=== PATIENT | female | born 1990 | race Caucasian/White ===

== ENCOUNTER 2016-09-21 11:42 | Emergency (ER) | payer MEDICAID, OTHER ==
[~2016-09-21 11:42] MED LIST: CALNTAB
[2016-09-21] MEDS ORDERED: LACTATED RINGER'S 1000 ML INJ 1,000 ML IV SCH (12:26)
[2016-09-21 12:30] VITALS: BP 136/85; PULSE 126; RESP 20; TEMP 98.6
[2016-09-21] MEDS ORDERED: METOCLOPRAMIDE HCL 10 MG/2 ML VIAL IV PUSH ONE (12:30)
[2016-09-21] MEDS ORDERED: ONDANSETRON HCL 4 MG/2 ML VIAL IV PUSH ONE (12:30)
[2016-09-21 12:59] LABS: HEMATOCRIT 35.9 % (35.0-46.0); MEAN CELL VOLUME 86.1 FL (80.0-100.0); MEAN CORPUSCULAR HEMOGLOBIN 30.6 PG (27.0-34.0); MEAN CORPUSCULAR HGB CONC 35.5 % (32.0-36.0); PLATELET COUNT 220 TH/MM3 (150-450); RED BLOOD COUNT 4.17 MIL/MM3 (4.00-5.30); RED CELL DISTRIBUTION WIDTH 13.5 % (11.6-17.2); REVIEW FLAG FINAL; WHITE BLOOD COUNT 19.3 TH/MM3 (4.0-11.0)
[2016-09-21 13:13] LABS: BACTERIA, URINE OCC /hpf; BLOOD, URINE TRACE (NEG); COMMENT (UR) CULT NOT INDICATED; CULTURE IF INDICATED CULT NOT INDICATED; GLUCOSE,URINE NEG (NEG); KETONE, URINE 80 mg/dL (NEG); MUCUS URINE FEW /lpf (OCC); NITRITE,URINE NEG (NEG); PH, URINE 6.5 (5.0-8.5); SQUAMOUS EPITHELIAL CELL URINE 21 /hpf (0-5); URINE COLOR YELLOW (YELLW/STRAW)
[2016-09-21 13:18] LABS: ALT (GPT) 24 U/L (10-53); ANION GAP 14 MEQ/L (5-15); AST (GOT) 34 U/L (15-37); BICARBONATE 20.4 MEQ/L (21.0-32.0); BLOOD UREA NITROGEN 9 MG/DL (7-18); CHLORIDE 106 MEQ/L (98-107); GLOMERULAR FILTRATION RATE 103 ML/MIN (>89); POTASSIUM 3.3 MEQ/L (3.5-5.1); SODIUM (NA) 140 MEQ/L (136-145)
[2016-09-21 13:20] LABS: AMPHETAMINE, URINE NEG (NEG); BARBITURATES, URINE NEG (NEG); COCAINE, URINE NEG (NEG)
[2016-09-21 13:21] LABS: ALKALINE PHOSPHATASE 165 U/L (45-117); TOTAL BILIRUBIN ADULT 0.4 MG/DL (0.2-1.0)
[2016-09-21] MEDS ORDERED: PROM25TA5 PO (14:05)
--- NOTE | 2016-09-21 14:06 | PD ---
HPI Chief Complaint Nausea and vomiting Date Seen: Sep 21, 2016 Travel History International Travel<30 Days: No Contact w/Intl Traveler<30Days: No Known Affected Area: No History of Present Illness HPI Patient is 26-year-old white female at 38 weeks presents planning of nausea and vomiting the last 1-2 days. With one episode of diarrhea as well. She denies any obstetrical problems baby is active she has no pain no bleeding or rupture the membranes Ammann heart rate tracing is reactive and she is anjum every 3 minutes but she doesn't feel them in all Para: 1 : 2 History Obstetric History Obstetric History One vaginal delivery Social History Alcohol Use: No Tobacco Use: No Substance Abuse: No Allergies-Medications (Allergen,Severity, Reaction): Coded Allergies: Latex (Verified Allergy, Severe, 09/20/16) Home Meds Reported Medications Vitamin (Calna)1 Tab Tab 08/04/16 Review of Systems General / Constitutional: No: Fever, Weight Gain, Chills, Other Eyes: No: Diploplia, Blurred Vision, Visual changes, Pain, Photophobia HENT: No: Headaches, Vertigo, Lightheadedness Cardiovascular: No: Irregular Rhythm, Chest Pain or Discomfort, Palpitations, Tachycardia, Syncope, Varicosities, Edema, Cyanosis Respiratory: Short of Breath, No: Cough, Wheezing, Other Gastrointestinal: Nausea, Vomiting, No: Diarrhea Genitourinary: No: Decreased Urinary Output, Oliguria Musculoskeletal: No: Limited ROM, Weakness, Cramping, Edema, Pain Skin: No Rash, No Itching, No Dryness, No Lumps, No Change in Pigmentation, No Change in Nails, No Alopecia, No Lesions Neurologic: No: Weakness, Dizziness, Syncope, Focal Abnormalities, Coordination Problem, Headache, Slurred Speech, Seizures Psychiatric: No: Depression, Suicidal Ideations, Homicidal Ideation Endocrine: No: Heat Intolerance, Cold Intolerance, Polydipsia, Polyuria, Other Physical Exam Vital Signs Date Time Temp Pulse Resp B/P Pulse Ox O2 Delivery O2 Flow Rate FiO2 09/21/16 12:30 98.6 20 09/21/16 12:30 126 136/85 Narrative GENERAL: Well-nourished, well-developed patient. SKIN: Warm and dry. HEAD: Normocephalic and atraumatic. EYES: No scleral icterus. No injection or drainage. ENT: No nasal drainage noted. Mucous membranes pink. Airway patent. NECK: Supple, trachea midline. No JVD. CARDIOVASCULAR: Regular rate and rhythm without murmurs, gallops, or rubs. RESPIRATORY: Breath sounds equal bilaterally. No accessory muscle use. BREASTS: Bilateral exam showed no masses , no retractions, no nipple discharge. ABDOMEN/GI: Abdomen soft, non-tender, bowel sounds present, no rebound, no guarding Gravid to [-38] weeks size Fundal Height: [-38] GENITOURINARY: External Genitalia: intact and normal in appearance BUS glands: [-] Cervix: [-] Dilatation: [2-] Effacement: [70-] Station: [-3] posterior Presentation: [-vtx] Membranes: [intact ] Uterine Contractions: [q 3 min-] FHT's: Category: [1-] Baseline: [-144] Reactive: [yes-] Variability: [mod-] Decels: [-none] EXTREMITIES: No cyanosis or edema. BACK: Nontender without obvious deformity. No CVA tenderness. NEUROLOGICAL: Awake and alert. Motor and sensory grossly within normal limits. Five out of 5 muscle strength in all muscle groups. Normal speech. Data Data Orders Vital Signs (Adult) .ON ADMISSION (09/21/16 12:26) ^ Labor Status (09/21/16 12:26) Urinalysis - C+S If Indicated (09/21/16 12:26) Cbc No Diff, Includes Plts (09/21/16 12:26) Comprehensive Metabolic Panel (09/21/16 12:26) Lactated Ringer's 1000 Ml Inj (Lr 1000 M (09/21/16 12:26) Ob/Psych Drug Screen, Urine (09/21/16 12:26) Ondansetron Inj (Zofran Inj) (09/21/16 12:30) Metoclopramide Inj (Reglan Inj) (09/21/16 12:30) Ur Bath Salts (09/21/16 12:43) Ur Heroin (09/21/16 12:43) Ur K2 Spice (09/21/16 12:43) Ur Ecstasy (09/21/16 12:43) Ur Methadone (09/21/16 12:43) Phencyclidine Urine (Pcp) (09/21/16 12:43) Labs Laboratory Tests Test 09/21/16 12:43 White Blood Count 19.3 Red Blood Count 4.17 Hemoglobin 12.7 Hematocrit 35.9 Mean Corpuscular Volume 86.1 Mean Corpuscular Hemoglobin 30.6 Mean Corpuscular Hemoglobin 35.5 Concent Red Cell Distribution Width 13.5 Platelet Count 220 Mean Platelet Volume 9.5 Urine Color YELLOW Urine Turbidity HAZY Urine pH 6.5 Urine Specific [place] 1.024 Urine Protein 100 Urine Glucose (UA) NEG Urine Ketones 80 Urine Occult Blood TRACE Urine Nitrite NEG Urine Bilirubin NEG Urine Urobilinogen LESS THAN 2.0 Urine Leukocyte Esterase SMALL Urine RBC 3 Urine WBC 4 Urine Squamous Epithelial 21 Cells Urine Bacteria OCC Urine Mucus FEW Microscopic Urinalysis Comment CULT NOT INDICATED Sodium Level 140 Potassium Level 3.3 Chloride Level 106 Carbon Dioxide Level 20.4 Anion Gap 14 Blood Urea Nitrogen 9 Creatinine 0.69 Estimat Glomerular Filtration 103 Rate Random Glucose 104 Calcium Level 8.8 Total Bilirubin 0.4 Aspartate Amino Transf 34 (AST/SGOT) Alanine Aminotransferase 24 (ALT/SGPT) Alkaline Phosphatase 165 Total Protein 7.7 Albumin 3.2 Urine Opiates Screen NEG Urine Barbiturates Screen NEG Urine Amphetamines Screen NEG Urine Benzodiazepines Screen NEG Urine Cocaine Screen NEG Urine Cannabinoids Screen NEG MDM Interpretation(s) She does 26-year-old white female at 38 weeks presents with nausea and vomiting. [facility], she denies obstetric problem no pain leakage or bleeding. The baby is active heart rate tracing is reactive she is anjum every 2-3 minutes but not feeling them cervix is 270 and -3 very posterior and she was checked over a period of 1-2 hours after the initial exam and her cervix remained the same. Plan This patient received a liter of IV fluid and antiemetic some form of Zofran and Reglan IV. Also discharged home with a prescription for oral Phenergan to take when necessary. She was labs within normal limits normal urinalysis normal blood work. She will follow-up with her OB provider Diagnosis Diagnosis: Primary Impression: Nausea and vomiting of , antepartum Additional Impression: False labor after 37 weeks of gestation without delivery Disposition: 01 DISCHARGE HOME Condition: Stable Scripts Promethazine (Phenergan)25 Mg Tab25 Mg PO Q6H PRN (Nausea/Vomiting) #28 TAB Ref 0 Prov:Delbert Cabrera II, MD 09/21/16 Delbert Cabrera II, MD Sep 21, 2016 14:05
[2016-09-25 09:43] LABS: HEROIN (6-ACETYLMORPHINE) UR NEG (NEG); OBMETHADONE UR NEG (NEG); PHENCYCLIDINE URINE NEG (NEG)
[2016-09-25 09:44] LABS: BATH SALTS (MDPV) UR NEG (NEG); ECSTASY (MDMA) UR NEG (NEG); K2 SPICE UR NEG (NEG); OXYCODONE (PERCODAN) NEG (NEG)
== END 2016-09-21 14:47 | disposition home or self-care (01) ==
LOC: HOBED 11:42
DX: O21.9 Vomiting of pregnancy, unspecified (principal); O47.1 False labor at or after 37 completed weeks of gestation; Z3A.38 38 weeks gestation of pregnancy
CPT/HCPCS: 59025; 80053; 80307; 81001; 85027; 96361; 96374; 96375; 99284; G0481; J2405; J2765; J7120

== ENCOUNTER 2016-09-29 22:25 | Emergency (ER) | payer MEDICAID ==
[~2016-09-29 22:25] MED LIST changes: +PROM25TA5 PO
[2016-09-29 23:38] LABS: BACTERIA, URINE RARE /hpf; BLOOD, URINE NEG (NEG); COMMENT (UR) CULT NOT INDICATED; CULTURE IF INDICATED CULT NOT INDICATED; GLUCOSE,URINE NEG (NEG); KETONE, URINE NEG (NEG); MUCUS URINE FEW /lpf (OCC); NITRITE,URINE NEG (NEG); SQUAMOUS EPITHELIAL CELL URINE 5 /hpf (0-5); URINE COLOR LIGHT-YELLOW (YELLW/STRAW)
--- NOTE | 2016-09-30 00:10 | PD ---
HPI Chief Complaint Contractions Date Seen: Sep 29, 2016 Time Seen: 23:10 Travel History International Travel<30 Days: No Contact w/Intl Traveler<30Days: No Known Affected Area: No History of Present Illness HPI 26-year-old 2 para 1 at 39-2/7 weeks' gestation with an EDC of 10/04. She reports with contractions since about 6 PM. She denies bleeding or leakage of fluid. She reports her cervix was 2 cm dilated at her last evaluation in labor and delivery for rule out labor. Para: 1 : 2 History Past Medical History Medical History: Denies Significant Hx Obstetric History Obstetric History Prior term vaginal [facility] care with [facility] which has been unremarkable. Past Surgical History Narrative Surgical Appendectomy, cholecystectomy Family History Family History: Negative Social History Alcohol Use: No Tobacco Use: No Substance Abuse: No Allergies-Medications (Allergen,Severity, Reaction): Coded Allergies: Latex (Verified Allergy, Severe, 09/27/16) Home Meds Active Scripts Promethazine (Phenergan)25 Mg Tab25 Mg PO Q6H PRN (Nausea/Vomiting) #28 TAB Ref 0 Prov:Delbert Cabrera II, MD 09/21/16 Reported Medications Vitamin (Calna)1 Tab Tab 08/04/16 Review of Systems Except as stated in HPI: all other systems reviewed are Neg Physical Exam Narrative GENERAL: Well-nourished, well-developed patient. SKIN: Warm and dry. HEAD: Normocephalic and atraumatic. EYES: No scleral icterus. No injection or drainage. ENT: No nasal drainage noted. Mucous membranes pink. Airway patent. NECK: Supple, trachea midline. No JVD. CARDIOVASCULAR: Regular rate and rhythm without murmurs, gallops, or rubs. RESPIRATORY: Breath sounds equal bilaterally. No accessory muscle use. ABDOMEN/GI: Abdomen soft, non-tender, bowel sounds present, no rebound, no guarding Gravid to [-] weeks size Fundal Height: [-] GENITOURINARY: External Genitalia: intact and normal in appearance BUS glands: [-] Cervix: [-] Dilatation: [-2] Effacement: [-50] Station: [--3] Presentation: [-Vertex] Membranes: [intact ] Uterine Contractions: [-Irregular] FHT's: Category: [1-] Baseline: [-] Reactive: [Reactive-] Variability: [-] Decels: [-] EXTREMITIES: No cyanosis or edema. BACK: Nontender without obvious deformity. No CVA tenderness. NEUROLOGICAL: Awake and alert. Motor and sensory grossly within normal limits. Five out of 5 muscle strength in all muscle groups. Normal speech. Data Data Vital Signs Reviewed: Yes Orders Urinalysis - C+S If Indicated (09/29/16 23:00) Labs Laboratory Tests Test 09/29/16 23:00 Urine Color LIGHT-YELLOW Urine Turbidity CLEAR Urine pH 7.0 Urine Specific [place] 1.007 Urine Protein NEG Urine Glucose (UA) NEG Urine Ketones NEG Urine Occult Blood NEG Urine Nitrite NEG Urine Bilirubin NEG Urine Urobilinogen LESS THAN 2.0 Urine Leukocyte Esterase NEG Urine RBC 1 Urine WBC 1 Urine Squamous Epithelial 5 Cells Urine Bacteria RARE Urine Mucus FEW Microscopic Urinalysis Comment CULT NOT INDICATED MDM Medical Record Reviewed: Yes Narrative Course / MDM Assessment: 39+ week gestation with irregular contractions without cervical change. Mild systolic blood pressure elevation without other features of preeclampsia Plan: The patient desires to go home and then to continue to be observed here for progressive signs of labor. Precautions were reviewed. 100 mg of by mouth Vistaril. Diagnosis Diagnosis: Primary Impression: False labor after 37 weeks of gestation without delivery Disposition: DISCHARGE HOME Braulio Friedman MD Sep 30, 2016 00:10
== END 2016-09-30 00:40 | disposition home or self-care (01) ==
LOC: HOBED 22:25
DX: O47.1 False labor at or after 37 completed weeks of gestation (principal); Z3A.39 39 weeks gestation of pregnancy
CPT/HCPCS: 81001; 99284

== ENCOUNTER 2016-10-02 07:49 | Inpatient (IN) | payer MEDICAID ==
[~2016-10-02] VITALS: Ht 152.4 cm; Wt 77.0 kg
[2016-10-02] VITALS (55 sets, daily range): BP systolic 100–155; BP diastolic 54–92; PULSE 62–113; RESP 17–22; TEMP 97.7–98.6
[2016-10-02] MEDS ORDERED: LACTATED RINGER'S 1000 ML INJ 1,000 ML IV PRN (08:29)
[2016-10-02] MEDS ORDERED: OXYTOCIN 30 UNITS-500ML PREMIX 500 ML IV ONE (08:30)
[2016-10-02] MEDS ORDERED: LIDOCAINE HCL 1% 50 ML VIAL INFIL PRN (08:30)
[2016-10-02] MEDS ORDERED: MINERAL OIL 10 ML VIAL TOPICAL PRN (08:30)
[2016-10-02] MEDS ORDERED: ONDANSETRON HCL 4 MG/2 ML VIAL IV PRN (08:30)
[2016-10-02] MEDS ORDERED: SODIUM CHLORID 0.9% 500 ML INJ 500 ML IV PRN (08:30)
[2016-10-02] MEDS ORDERED: CITRIC ACID-SODIUM CITRATE LIQ 30 ML UDC PO SCH (08:30)
[2016-10-02] MEDS ORDERED: LIDOCAINE HCL 1% 50 ML VIAL I-DERMAL PRN (08:30)
--- NOTE | 2016-10-02 08:48 | PD ---
HPI Chief Complaint Contractions Date Seen: Oct 02, 2016 Time Seen: 08:30 (Eagle Moreno MD R2) Travel History International Travel<30 Days: No Contact w/Intl Traveler<30Days: No Known Affected Area: No (Eagle Moreno MD R2) History of Present Illness HPI This is a 26-year-old female at 39/5 weeks gestational age presenting to [facility] ED for contractions that have been occurring since midnight. She says that the contractions started out soft but fairly consistent during the night, and have progressively increased in strength and frequency. Throughout this time frame she has been noticing some bloody discharge with her normal vaginal discharge. She denies any gush of fluid or continued leakage of fluid. She denies any headache, blurred vision, or continued right upper quadrant abdominal pain. She does admit to her face feeling swollen. She reports that throughout the she has not had blood pressure issues until the last week and her appointment they noticed her blood pressure elevating some. Upon arriving to the ED her blood pressure was elevated at 153/87, then repeats were 141/95 then 134/89. She is having a baby girl and she is looking forward to seeing little one. Of note she is GBS negative Para: 1 : 2 (Eagle Moreno MD R2) History Past Medical History Medical History: Denies Significant Hx (Eagle Moreno MD R2) Obstetric History Obstetric History One previous vaginal delivery (Eagle Moreno MD R2) Past Surgical History Narrative Surgical Appendectomy, cholecystectomy (Eagle Moreno MD R2) Family History Family History: Negative (Eagle Moreno MD R2) Social History Alcohol Use: No Tobacco Use: Yes (smoked prior to , quit when she found out she was ) Substance Abuse: No (Eagle Moreno MD R2) Allergies-Medications (Allergen,Severity, Reaction): Coded Allergies: Latex (Verified Allergy, Severe, 09/27/16) Home Meds Active Scripts Promethazine (Phenergan)25 Mg Tab25 Mg PO Q6H PRN (Nausea/Vomiting) #28 TAB Ref 0 Prov:Delbert Cabrera II, MD 09/21/16 Reported Medications Vitamin (Calna)1 Tab Tab 08/04/16 Review of Systems General / Constitutional: Weight Gain, No: Fever, Weight Loss, Chills Eyes: No: Diploplia, Blurred Vision, Visual changes HENT: No: Headaches, Lightheadedness Cardiovascular: No: Irregular Rhythm, Chest Pain or Discomfort Respiratory: No: Cough, Short of Breath Gastrointestinal: Nausea, Abdominal Pain (contractions), No: Vomiting, Constipation, Changes in Bowel Habits, Indigestion, Loss of Appetite Genitourinary: Pelvic Pain, Discharge, Vaginal Bleeding, No: Urgency, Nocturia Musculoskeletal: Edema (face and legs), No: Weakness Skin: No Rash, No Itching Neurologic: No: Weakness, Dizziness, Headache, Slurred Speech, Seizures Psychiatric: No: Anxiety, Depression (Eagle Moreno MD R2) Physical Exam Narrative GENERAL: Well-nourished, well-developed patient. SKIN: Warm and dry. HEAD: Normocephalic and atraumatic. EYES: No scleral icterus. No injection or drainage. ENT: No nasal drainage noted. Mucous membranes pink. Airway patent. NECK: Supple, trachea midline. No JVD. CARDIOVASCULAR: Regular rate and rhythm without murmurs, gallops, or rubs. RESPIRATORY: Breath sounds equal bilaterally. No accessory muscle use. ABDOMEN/GI: Abdomen soft, non-tender, bowel sounds present, no rebound, no guarding Gravid to 39 weeks size Fundal Height: 39 GENITOURINARY: External Genitalia: intact and normal in appearance Cervix: Thin, soft, stretchy Dilatation: 4 Effacement: 80% Station: -3 Presentation: Vertex Membranes: Intact Uterine Contractions: Every 2-3 minutes FHT's: Category: 1 Baseline: 120 Reactive: Up to 140 Variability: Moderate Decels: None EXTREMITIES: No cyanosis or edema. BACK: Nontender without obvious deformity. No CVA tenderness. NEUROLOGICAL: Awake and alert. Motor and sensory grossly within normal limits. Five out of 5 muscle strength in all muscle groups. Normal speech. (Eagle Moreno MD R2) Data Data Vital Signs Reviewed: Yes Orders Admit To Inpatient (10/02/16 ) Code Status (10/02/16 08:29) Vital Signs (Adult) .Per protocol (10/02/16 08:29) Activity Oob Ad Sushila (10/02/16 08:29) ^ Heart (10/02/16 08:29) ^ Amnioinfusion (10/02/16 08:29) Urinary Catheter Management .ONCE (10/02/16 08:29) Diet Npo (10/02/16 Breakfast) Lactated Ringer's 1000 Ml Inj (Lr 1000 M (10/02/16 08:29) Lactated Ringer's 1000 Ml Inj (Lr 1000 M (10/02/16 08:29) Sodium Chlorid 0.9% 500 Ml Inj (Ns 500 M (10/02/16 08:30) Sodium Chlor 0.9% 1000 Ml Inj (Ns 1000 M (10/02/16 08:49) Lidocaine 1% Inj (50 Ml) (Xylocaine 1% I (10/02/16 08:30) Citric Acid-Sodium Citrate Liq (Bicitra (10/02/16 08:30) Ondansetron Inj (Zofran Inj) (10/02/16 08:30) Fentanyl Inj (Fentanyl Inj) (10/02/16 08:30) Fentanyl Inj (Fentanyl Inj) (10/02/16 08:30) Complete Blood Count With Diff (10/02/16 08:29) Hold Clot (10/02/16 08:29) Abo/Rh Blood Type (10/02/16 08:29) Urinalysis - C+S If Indicated (10/02/16 08:29) Resp Oxygen Non Rebreathe Mask (10/02/16 ) ^ Epidural / Intrathecal Infus (10/02/16 08:29) Oxytocin 30 Units-500ml Premix (Pitocin (10/02/16 08:30) Lidocaine 1% Inj (50 Ml) (Xylocaine 1% I (10/02/16 08:30) Light Mineral Oil (Muri-Lube Oil) (10/02/16 08:30) Inpatient Certification (10/02/16 ) (Eagle Moreno MD R2) MDM Medical Record Reviewed: Yes Interpretation(s) Contractions Narrative Course / MDM This is a 26-year-old female at 39/5 weeks gestational age being admitted for labor Plan 1. Intrauterine : GBS negative -Continuous heart tracing: Category 1 -Continuous monitoring for contractions: Every 2-3 minutes -Continue expectant management -Patient plans for epidural -Currently intact membrane anticipate AROM 2. Elevated blood pressure in (153/87 upon arrival, most recent 134/ 89) -CBC ordered: Results pending -CMP ordered: Results pending -UA ordered: Results pending -Continue evaluation for possible preeclampsia DW: Dr. Friedman (Eagle Moreno MD R2) Attending Attestation Patient seen and evaluated with resident under direct supervision, agree with assessment and plan. (Braulio Friedman MD) Eagle Moreno MD R2 Oct 02, 2016 08:48 Braulio Friedman MD Oct 02, 2016 09:32
[2016-10-02] MEDS ORDERED: SODIUM CHLOR 0.9% 1000 ML INJ 1,000 ML IV PRN (08:49)
--- NOTE | 2016-10-02 08:51 | HHI.HP ---
History & Physical H&P HPI Chief Complaint Contractions Date Seen: Oct 02, 2016 Time Seen: 08:30 Travel History International Travel<30 Days: No Contact w/Intl Traveler<30Days: No Known Affected Area: No History of Present Illness HPI This is a 26-year-old female at 39/5 weeks gestational age presenting to [facility] ED for contractions that have been occurring since midnight. She says that the contractions started out soft but fairly consistent during the night, and have progressively increased in strength and frequency. Throughout this time frame she has been noticing some bloody discharge with her normal vaginal discharge. She denies any gush of fluid or continued leakage of fluid. She denies any headache, blurred vision, or continued right upper quadrant abdominal pain. She does admit to her face feeling swollen. She reports that throughout the she has not had blood pressure issues until the last week and her appointment they noticed her blood pressure elevating some. Upon arriving to the ED her blood pressure was elevated at 153/87, then repeats were 141/95 then 134/89. She is having a baby girl and she is looking forward to seeing little one. Of note she is GBS negative Para: 1 : 2 History (Limited) History Past Medical History Medical History: Denies Significant Hx Obstetric History Obstetric History One previous vaginal delivery Past Surgical History Narrative Surgical Appendectomy, cholecystectomy Family History Family History: Negative Social History Alcohol Use: No Tobacco Use: Yes (smoked prior to , quit when she found out she was ) Substance Abuse: No Allergies-Medications Allergies-Medications (Allergen,Severity, Reaction): Coded Allergies: Latex (Verified Allergy, Severe, 09/27/16) Home Meds Active Scripts Promethazine (Phenergan)25 Mg Tab25 Mg PO Q6H PRN (Nausea/Vomiting) #28 TAB Ref 0 Prov:Delbert Cabrera II, MD 09/21/16 Reported Medications Vitamin (Calna)1 Tab Tab 08/04/16 ROS Review of Systems General / Constitutional: Weight Gain, No: Fever, Weight Loss, Chills Eyes: No: Diploplia, Blurred Vision, Visual changes HENT: No: Headaches, Lightheadedness Cardiovascular: No: Irregular Rhythm, Chest Pain or Discomfort Respiratory: No: Cough, Short of Breath Gastrointestinal: Nausea, Abdominal Pain (contractions), No: Vomiting, Constipation, Changes in Bowel Habits, Indigestion, Loss of Appetite Genitourinary: Pelvic Pain, Discharge, Vaginal Bleeding, No: Urgency, Nocturia Musculoskeletal: Edema (face and legs), No: Weakness Skin: No Rash, No Itching Neurologic: No: Weakness, Dizziness, Headache, Slurred Speech, Seizures Psychiatric: No: Anxiety, Depression Physical Exam Physical Exam Narrative GENERAL: Well-nourished, well-developed patient. SKIN: Warm and dry. HEAD: Normocephalic and atraumatic. EYES: No scleral icterus. No injection or drainage. ENT: No nasal drainage noted. Mucous membranes pink. Airway patent. NECK: Supple, trachea midline. No JVD. CARDIOVASCULAR: Regular rate and rhythm without murmurs, gallops, or rubs. RESPIRATORY: Breath sounds equal bilaterally. No accessory muscle use. ABDOMEN/GI: Abdomen soft, non-tender, bowel sounds present, no rebound, no guarding Gravid to 39 weeks size Fundal Height: 39 GENITOURINARY: External Genitalia: intact and normal in appearance Cervix: Thin, soft, stretchy Dilatation: 4 Effacement: 80% Station: -3 Presentation: Vertex Membranes: Intact Uterine Contractions: Every 2-3 minutes FHT's: Category: 1 Baseline: 120 Reactive: Up to 140 Variability: Moderate Decels: None EXTREMITIES: No cyanosis or edema. BACK: Nontender without obvious deformity. No CVA tenderness. NEUROLOGICAL: Awake and alert. Motor and sensory grossly within normal limits. Five out of 5 muscle strength in all muscle groups. Normal speech. Data Data Data Vital Signs Reviewed: Yes Orders Admit To Inpatient (10/02/16 ) Code Status (10/02/16 08:29) Vital Signs (Adult) .Per protocol (10/02/16 08:29) Activity Oob Ad Sushila (10/02/16 08:29) ^ Heart (10/02/16 08:29) ^ Amnioinfusion (10/02/16 08:29) Urinary Catheter Management .ONCE (10/02/16 08:29) Diet Npo (10/02/16 Breakfast) Lactated Ringer's 1000 Ml Inj (Lr 1000 M (10/02/16 08:29) Lactated Ringer's 1000 Ml Inj (Lr 1000 M (10/02/16 08:29) Sodium Chlorid 0.9% 500 Ml Inj (Ns 500 M (10/02/16 08:30) Sodium Chlor 0.9% 1000 Ml Inj (Ns 1000 M (10/02/16 08:49) Lidocaine 1% Inj (50 Ml) (Xylocaine 1% I (10/02/16 08:30) Citric Acid-Sodium Citrate Liq (Bicitra (10/02/16 08:30) Ondansetron Inj (Zofran Inj) (10/02/16 08:30) Fentanyl Inj (Fentanyl Inj) (10/02/16 08:30) Fentanyl Inj (Fentanyl Inj) (10/02/16 08:30) Complete Blood Count With Diff (10/02/16 08:29) Hold Clot (10/02/16 08:29) Abo/Rh Blood Type (10/02/16 08:29) Urinalysis - C+S If Indicated (10/02/16 08:29) Resp Oxygen Non Rebreathe Mask (10/02/16 ) ^ Epidural / Intrathecal Infus (10/02/16 08:29) Oxytocin 30 Units-500ml Premix (Pitocin (10/02/16 08:30) Lidocaine 1% Inj (50 Ml) (Xylocaine 1% I (10/02/16 08:30) Light Mineral Oil (Muri-Lube Oil) (10/02/16 08:30) Inpatient Certification (10/02/16 ) MDM MDM Medical Record Reviewed: Yes Interpretation(s) Contractions Narrative Course / MDM This is a 26-year-old female at 39/5 weeks gestational age being admitted for labor Plan 1. Intrauterine : GBS negative -Continuous heart tracing: Category 1 -Continuous monitoring for contractions: Every 2-3 minutes -Continue expectant management -Patient plans for epidural -Currently intact membrane anticipate AROM 2. Elevated blood pressure in (153/87 upon arrival, most recent 134/ 89) -CBC ordered: Results pending -CMP ordered: Results pending -UA ordered: Results pending -Continue evaluation for possible preeclampsia DW: Dr. Friedman (Eagle Moreno MD R2) H&P Patient seen and evaluated with resident under direct supervision, agree with assessment and plan. (Braulio Friedman MD) Eagle Moreno MD R2 Oct 02, 2016 08:51 Braulio Friedman MD Oct 02, 2016 09:33
[2016-10-02 09:09] LABS: AUTOMATED NEUTROPHIL # 9.6 TH/MM3 (1.8-7.7); BASOPHIL % 0.2 % (0.0-2.0); EOSINOPHIL # 0.1 TH/MM3 (0-0.4); EOSINOPHIL % 0.5 % (0.0-4.0); HEMATOCRIT 34.6 % (35.0-46.0); HEMO FLAGS DIFF FINAL; LYMPHOCYTE # 2.9 TH/MM3 (1.0-4.8); MEAN CELL VOLUME 86.1 FL (80.0-100.0); MEAN CORPUSCULAR HEMOGLOBIN 29.9 PG (27.0-34.0); MEAN CORPUSCULAR HGB CONC 34.7 % (32.0-36.0); MONO % 5.3 % (0.0-8.0); PLATELET COUNT 238 TH/MM3 (150-450); RED BLOOD COUNT 4.02 MIL/MM3 (4.00-5.30); RED CELL DISTRIBUTION WIDTH 13.5 % (11.6-17.2); WHITE BLOOD COUNT 13.3 TH/MM3 (4.0-11.0)
[2016-10-02 09:14] LABS: BLOOD, URINE SMALL (NEG); GLUCOSE,URINE NEG (NEG); GRANULAR CAST, URINE 1 /lpf; KETONE, URINE NEG (NEG); NITRITE,URINE NEG (NEG); SQUAMOUS EPITHELIAL CELL URINE 2 /hpf (0-5); URINE COLOR LIGHT-YELLOW (YELLW/STRAW)
[2016-10-02 09:15] LABS: COMMENT (UR) CULT NOT INDICATED; CULTURE IF INDICATED CULT NOT INDICATED
[2016-10-02] MEDS ORDERED: fentaNYL 2MCG-BUPIV 0.125% INJ 100 ML ONE (09:22)
[2016-10-02] MEDS ORDERED: ePHEDrine/NS 25 MG/5 ML SYR ONE (09:45)
[2016-10-02] MEDS: LACTATED RINGER'S 1000 ML INJ 1,000 ML IV SCH ×2 (09:52→12:13)
[2016-10-02 09:56] LABS: ALKALINE PHOSPHATASE 174 U/L (45-117); ALT (GPT) 26 U/L (10-53); ANION GAP 11 MEQ/L (5-15); AST (GOT) 21 U/L (15-37); BICARBONATE 21.3 MEQ/L (21.0-32.0); BLOOD UREA NITROGEN 7 MG/DL (7-18); CHLORIDE 104 MEQ/L (98-107); GLOMERULAR FILTRATION RATE 101 ML/MIN (>89); POTASSIUM 3.7 MEQ/L (3.5-5.1); SODIUM (NA) 136 MEQ/L (136-145); TOTAL BILIRUBIN ADULT 0.3 MG/DL (0.2-1.0)
--- NOTE | 2016-10-02 11:02 | PD.LABORPN ---
Subjective Subjective Patient seen and examined. Doing well is not complaining of any pain. Continues to feel contractions. Feels baby moving appropriately. Continues to complain of pelvic pressure. Agrees to the plan of doing an artificial rupture membrane. Objective Vital Signs Vital Signs Date Time Temp Pulse Resp B/P Pulse Ox O2 Delivery O2 Flow Rate FiO2 10/02/16 10:15 97.7 10/02/16 10:11 71 20 135/76 10/02/16 10:06 68 134/80 10/02/16 10:05 73 10/02/16 10:00 76 10/02/16 09:29 20 Objective Pelvic Exam: Cervix: Thin, stretchy Dilatation: 4 Effacement: 80 Station: -3 Presentation: Vertex Membranes: AROM Uterine Contractions: 4-5 minutes FHT's: Category: 1 Baseline: 120 Reactive: Up to 150 Variability: Monitor Decels: Variables Assessment/Plan Problem List: (1) Intrauterine (2) Labor without complication Assessment and Plan This is a 26-year-old female at 39/5 weeks gestational age currently laboring 1. Intrauterine : GBS negative, AROM -Continuous heart tracing: Category 1 -Continuous monitoring for contractions: Every 2-3 minutes -Continue expectant management -AROM performed, clear fluid -Recheck in 1-2 hours for progression, consider Pitocin at that time 2. Elevated blood pressure in (153/87 upon arrival, most recent 110/ 82) -CBC: Platelets 238 -CMP: AST/ALT is 21/26 respectively -UA: Negative protein -Continue to monitor blood pressure, improving with pain control DW: Eagle Landaverde MD R2 Oct 02, 2016 11:02
[2016-10-02] MEDS ORDERED: DO NOT ADMINISTER ANTICOAGULANTS XX PRN (12:00)
[2016-10-02] MEDS ORDERED: fentaNYL 2MCG-BUPIV 0.125% 100 ML EPIDURAL SCH (12:00)
[2016-10-02] MEDS ORDERED: ePHEDrine/NS 25 MG/5 ML SYR IV PRN (12:00)
[2016-10-02] MEDS ORDERED: NO SYSTEM NARCOTICS XX PRN (12:00)
[2016-10-02] MEDS ORDERED: OXYTOCIN 30 UNITS-500ML PREMIX 500 ML IV SCH (14:45)
[2016-10-02] MEDS ORDERED: PREN29TA PO (14:49)
--- NOTE | 2016-10-02 15:16 | PD.LABORPN ---
Subjective Subjective Patient seen and examined. Doing well, pain is controlled. She continues to feel contractions. +FM. Objective Vital Signs Vital Signs Date Time Temp Pulse Resp B/P Pulse Ox O2 Delivery O2 Flow Rate FiO2 10/02/16 14:46 78 132/87 10/02/16 14:30 98.6 18 10/02/16 14:16 71 138/79 10/02/16 13:59 18 10/02/16 13:45 62 130/81 10/02/16 13:06 17 10/02/16 13:05 72 10/02/16 13:01 68 120/72 10/02/16 13:00 70 10/02/16 12:05 65 10/02/16 12:01 69 100/59 10/02/16 12:00 72 10/02/16 11:55 71 10/02/16 11:50 70 10/02/16 11:46 66 103/54 10/02/16 11:45 71 10/02/16 11:40 66 10/02/16 11:35 66 10/02/16 11:31 71 104/62 10/02/16 11:30 70 10/02/16 11:30 18 10/02/16 11:25 70 10/02/16 11:20 68 10/02/16 11:16 62 121/66 10/02/16 11:15 69 10/02/16 10:45 20 10/02/16 10:40 74 10/02/16 10:35 84 10/02/16 10:31 83 134/92 10/02/16 10:30 81 10/02/16 10:15 97.7 10/02/16 10:11 71 20 135/76 10/02/16 10:06 68 134/80 10/02/16 10:05 73 10/02/16 10:00 76 10/02/16 09:29 20 Objective Pelvic Exam: Cervix: anterior Dilatation: 5cm Effacement: 80% Station: -3 Presentation: vertex Membranes: ruptured Uterine Contractions: q2-3 minutes FHT's: Category: I Baseline: 120s Reactive: yes Variability: mod Decels: none Assessment/Plan Problem List: (1) Intrauterine (2) Labor without complication Assessment and Plan Patient is a 26 year old at 39/5 weeks gestation currently laboring 1. Intrauterine : GBS negative, AROM -Continuous heart tracing: Category 1 -Continuous monitoring for contractions: Every 2-3 minutes -Continue expectant management -AROM performed, clear fluid -Pitocin augmentation per protocol -Recheck in 1-2 hours for progression 2. Elevated blood pressure in (153/87 upon arrival, most recent 132/87 ) -CBC: Platelets 238 -CMP: AST/ALT is 21/26 respectively -UA: Negative protein -Continue to monitor blood pressure, improving with pain control dw Dr. Rick Cota,Anthony GRAY R1 Oct 02, 2016 15:16
[2016-10-02] MEDS ORDERED: DIPHTH/TETANUS/ACEL PERTUSSIS (BOOSTER) 0.5 ML VIAL/PFS IM ONE (16:00)
[2016-10-02] MEDS ORDERED: MEASLES, MUMPS, RUBELLA VACCINE 0.5 ML VIAL SQ ONE (16:00)
--- NOTE | 2016-10-02 16:41 | PD.LABORPN ---
Subjective Subjective Patient seen and examined. Reports that she is feeling some contractions and some pelvic pressure. Overall says she is doing fine other than she feels some mild nausea. Objective Vital Signs Vital Signs Date Time Temp Pulse Resp B/P Pulse Ox O2 Delivery O2 Flow Rate FiO2 10/02/16 16:01 88 143/81 10/02/16 16:00 19 10/02/16 15:46 79 140/79 10/02/16 15:30 18 10/02/16 15:16 80 127/84 10/02/16 14:46 78 132/87 10/02/16 14:30 98.6 18 10/02/16 14:16 71 138/79 10/02/16 13:59 18 10/02/16 13:45 62 130/81 10/02/16 13:06 17 10/02/16 13:05 72 10/02/16 13:01 68 120/72 10/02/16 13:00 70 10/02/16 12:05 65 10/02/16 12:01 69 100/59 10/02/16 12:00 72 10/02/16 11:55 71 10/02/16 11:50 70 10/02/16 11:46 66 103/54 10/02/16 11:45 71 10/02/16 11:40 66 10/02/16 11:35 66 10/02/16 11:31 71 104/62 10/02/16 11:30 70 10/02/16 11:30 18 10/02/16 11:25 70 10/02/16 11:20 68 10/02/16 11:16 62 121/66 10/02/16 11:15 69 10/02/16 10:45 20 10/02/16 10:40 74 10/02/16 10:35 84 10/02/16 10:31 83 134/92 10/02/16 10:30 81 10/02/16 10:15 97.7 10/02/16 10:11 71 20 135/76 10/02/16 10:06 68 134/80 10/02/16 10:05 73 10/02/16 10:00 76 10/02/16 09:29 20 Objective Pelvic Exam: Cervix: Soft Dilatation: 6 Effacement: 80% Station: -3 Presentation: Vertex Membranes: AROM Uterine Contractions: 23 minutes FHT's: Category: 2 Baseline: 120 Reactive: Up to 145 Variability: Moderate Decels: Variables Assessment/Plan Problem List: (1) Intrauterine (2) Labor without complication Assessment and Plan This is a 26-year-old female at 39/5 weeks gestational age currently laboring 1. Intrauterine : GBS negative, AROM -Continuous heart tracing: Category 2 -Continuous monitoring for contractions: Every 2-3 minutes -Continue expectant management -AROM performed, clear fluid -Recheck in 1-2 hours for progression -Pitocin at 2-2-20 2. Elevated blood pressure in (153/87 upon arrival, most recent 110/ 82) -CBC: Platelets 238 -CMP: AST/ALT is 21/26 respectively -UA: Negative protein -Continue to monitor blood pressure, improved with pain control DW: Dr. Rick Moreno,Eagle Dumont MD R2 Oct 02, 2016 16:41
[2016-10-02] MEDS ORDERED: LIDOCAINE HCL 1.5% PF SOLN 20 ML AMP ONE (16:47)
--- NOTE | 2016-10-02 18:14 | PD.OB.DELI ---
Anesthesia: Epidural Episiotomy: None Vaginal Delivery: Normal, Spontaneous Presentation: Occiput anterior Nuchal Cord: None Delayed cord clamping (45 sec): No Infant: Female One Minute : 9 Five Minute : 9 Weight: 3375 grams Care: Spontaneous crying, Responded to stimulation Placenta: Spontaneous delivery, Intact, 3 vessel cord Laceration: No lacerations Additional Information 26 year old now delivered at 39/5 weeks gestation vaginally over an intact perineum. Apgars were 9/9. weight 3375 grams. Placenta delivered spontaneously intact with 3-vessel cord. EBL < 500 cc. No vaginal lacerations. Anthony Cota MD R1 Oct 02, 2016 18:14
[2016-10-02] MEDS ORDERED: DOCUSATE SODIUM 50 MG/SENNA 8.6 MG TAB PO PRN (18:15)
[2016-10-02] MEDS ORDERED: ALUMINUM/MAGNESIUM/SIMETH 30 ML CUP PO PRN (18:15)
[2016-10-02] MEDS ORDERED: WITCH HAZEL 50%/GLYCERIN 12.5% 40 PAD JAR TOPICAL PRN (18:15)
[2016-10-02] MEDS ORDERED: oxyCODONE/ACETAMINOPHEN 5 MG/325 MG TAB PO PRN (18:15)
[2016-10-02] MEDS ORDERED: ZOLPIDEM TARTRATE 5 MG TAB PO PRN (18:15)
[2016-10-02] MEDS ORDERED: ACETAMINOPHEN 325 MG TAB PO PRN (18:15)
[2016-10-02] MEDS ORDERED: ONDANSETRON ODT 4 MG TAB PO PRN (18:15)
[2016-10-02] MEDS ORDERED: BENZOCAINE 20% TOPICAL SPRAY 60 ML CAN TOPICAL PRN (18:15)
[2016-10-02] MEDS ORDERED: SODIUM CHLORIDE 0.9% FLUSH 5 ML FLUSH IV PRN (18:15)
[2016-10-02] MEDS ORDERED: SODIUM CHLORIDE 0.9% FLUSH 5 ML FLUSH IV SCH (21:00)
[2016-10-02] MEDS: IBUPROFEN 600 MG TAB PO PRN (22:12)
[2016-10-03] MEDS: IBUPROFEN 600 MG TAB PO PRN ×3 (06:02→23:34)
--- NOTE | 2016-10-03 07:29 | HHI.OB ---
Subjective Post Day: 2 Remarks Patient seen and examined this morning. AFVSS overnight. day #1. She is using Motrin for relief of pain and cramping. She states she is having vaginal bleeding at an amount slightly more than her normal period. Denies dysuria. No breast tenderness. She is feeding the baby via breast. No nausea or vomiting, she plans to order breakfast soon. Ambulating slowly but without major issues. Denies calf pain, shortness of breath, or cough. She otherwise has no other complaints or concerns this morning. Objective Vitals/I&O Vital Signs Date Time Temp Pulse Resp B/P Pulse Ox O2 Delivery O2 Flow Rate FiO2 10/02/16 19:30 73 121/68 10/02/16 19:15 77 117/68 10/02/16 19:00 78 120/67 10/02/16 18:45 18 10/02/16 18:45 82 122/66 10/02/16 18:43 76 117/65 10/02/16 18:30 98.6 10/02/16 18:21 18 10/02/16 18:15 72 130/67 10/02/16 17:45 22 10/02/16 17:31 83 155/68 10/02/16 17:16 20 10/02/16 16:53 20 10/02/16 16:47 83 145/81 10/02/16 16:30 18 10/02/16 16:15 113 144/91 10/02/16 16:01 88 143/81 10/02/16 16:00 19 10/02/16 15:46 79 140/79 10/02/16 15:30 18 10/02/16 15:16 80 127/84 10/02/16 14:46 78 132/87 10/02/16 14:30 98.6 18 10/02/16 14:16 71 138/79 10/02/16 13:59 18 10/02/16 13:45 62 130/81 10/02/16 13:06 17 10/02/16 13:05 72 10/02/16 13:01 68 120/72 10/02/16 13:00 70 10/02/16 12:05 65 10/02/16 12:01 69 100/59 10/02/16 12:00 72 10/02/16 11:55 71 10/02/16 11:50 70 10/02/16 11:46 66 103/54 10/02/16 11:45 71 10/02/16 11:40 66 10/02/16 11:35 66 10/02/16 11:31 71 104/62 10/02/16 11:30 70 10/02/16 11:30 18 10/02/16 11:25 70 10/02/16 11:20 68 10/02/16 11:16 62 121/66 10/02/16 11:15 69 10/02/16 10:45 20 10/02/16 10:40 74 10/02/16 10:35 84 10/02/16 10:31 83 134/92 10/02/16 10:30 81 10/02/16 10:15 97.7 10/02/16 10:11 71 20 135/76 10/02/16 10:06 68 134/80 10/02/16 10:05 73 10/02/16 10:00 76 10/02/16 09:29 20 Objective Remarks GENERAL: Well-nourished, well-developed patient. CARDIOVASCULAR: Regular rate and rhythm without murmurs, gallops, or rubs. RESPIRATORY: Breath sounds equal bilaterally. No accessory muscle use. ABDOMEN/GI: Abdomen soft, non-tender. Fundus: Firm, non-tender at umbilicus. GENITOURINARY: Moderate bleeding. EXTREMITIES: No cyanosis or edema, non-tender, without signs of DVT. Medications and IVs Current Medications Medications (Trade) Dose Ordered Sig/Idalia Route Start Time Stop Time Status Last Admin Miscellaneous Information No systemic narcotics to be given except... UNSCH PRN XX 10/02/16 12:00 10/03/16 11:59 Miscellaneous Information DO NOT ADMINISTER ANY ANTICOAGUL... UNSCH PRN XX 10/02/16 12:00 10/03/16 11:59 (NS Flush) 2 ml BID IV 10/02/16 21:00 (NS Flush) 2 ml UNSCH PRN IV 10/02/16 18:15 (Tylenol) 650 mg Q4H PRN PO 10/02/16 18:15 (Motrin) 600 mg Q6H PRN PO 10/02/16 18:15 10/03/16 06:02 (Percocet 5-325 Mg) 1 tab Q4H PRN PO 10/02/16 18:15 (Percocet 5-325 Mg) 2 tab Q4H PRN PO 10/02/16 18:15 (Americaine 20% Top Spr) 1 spray Q4H PRN TOPICAL 10/02/16 18:15 (Tucks Pads) 1 applic QID PRN TOPICAL 10/02/16 18:15 (Alona-Colace) 2 tab Q12H PRN PO 10/02/16 18:15 (Ambien) 5 mg HS PRN PO 10/02/16 18:15 (Mag-Al Plus Susp Liq) 15 ml Q8H PRN PO 10/02/16 18:15 (Zofran Odt) 4 mg Q6H PRN PO 10/02/16 18:15 Assessment/Plan Problem List: (1) care following vaginal delivery Assessment and Plan 26 year old PPD#1. 1. Care - AFVSS - Encouraged OOB, as tolerated - Motrin prn pain - Advised pelvic rest x 6 weeks - - Contraception: States she has consent signed for BTL from her physician and will schedule this in four weeks - Will f/u with [facility] - Anticipate discharge tomorrow 10/[address] MD R1 Oct 03, 2016 07:29
[2016-10-03] MEDS: oxyCODONE/ACETAMINOPHEN 5 MG/325 MG TAB PO PRN ×3 (07:48→23:34)
[2016-10-03 08:00] VITALS: BP 137/87; PULSE 77; RESP 18; TEMP 98.3
[2016-10-03 20:00] VITALS: BP 131/87; PULSE 81; RESP 18; TEMP 98.2
[2016-10-04] MEDS ORDERED: SENN1TAB PO (06:53)
[2016-10-04] MEDS ORDERED: IBUP-232 PO (06:53)
--- NOTE | 2016-10-04 06:54 | HHI.DCPOC ---
Discharge Care Plan Diagnosis: (1) care following vaginal delivery (2) Labor without complication (3) Intrauterine Report Symptoms to Your Doctor -Temperate above 100.5 degrees -Redness, of incision or excessive or foul smelling drainage -Unusual pain or calf pain -Increased vaginal bleeding -Painful or difficulty urinating -Feelings of extreme sadness or anxiety after 2 weeks Goals to Promote Your Health * To prevent worsening of your condition and complications * To maintain your health at the optimal level Follow up with OB in 6 weeks Pelvic Rest x6 weeks Directions to Meet Your Goals Take your medications as prescribed Follow your dietary instruction Follow activity as directed Ensure plenty of rest for recovery Drink fluids for hydration Keep your appointments as scheduled Take your immunizations and boosters as scheduled If your symptoms worsen call your PCP, if no PCP go to Urgent Care Center or Emergency Room Smoking is Dangerous to Your Health. Avoid second hand smoke Call the 24-hour crisis hotline for domestic abuse at Eagle Moreno MD R2 Oct 04, 2016 06:54
--- NOTE | 2016-10-04 07:15 | HHI.OB ---
Subjective Post Day: 2 Remarks Patient seen and examined this morning. AFVSS overnight. day #2. Pain is well controlled. She states her vaginal bleeding has decreased from yesterday, now much less than her normal menstrual period. Denies dysuria. No breast tenderness. She is feeding the baby via breast. Appetite is good. No nausea or vomiting. Ambulating well without issues. Denies calf pain, shortness of breath, or cough. She otherwise has no other complaints or concerns this morning. (Anthony Cota MD R1) Objective Vitals/I&O Vital Signs Date Time Temp Pulse Resp B/P Pulse Ox O2 Delivery O2 Flow Rate FiO2 10/03/16 20:00 98.2 10/03/16 20:00 81 18 131/87 10/03/16 08:00 98.3 77 18 137/87 Objective Remarks GENERAL: Well-nourished, well-developed patient. CARDIOVASCULAR: Regular rate and rhythm without murmurs, gallops, or rubs. RESPIRATORY: Breath sounds equal bilaterally. No accessory muscle use. ABDOMEN/GI: Abdomen soft, non-tender. Fundus: Firm, non-tender at umbilicus. GENITOURINARY: Light bleeding. EXTREMITIES: No cyanosis or edema, non-tender, without signs of DVT. Medications and IVs Current Medications Medications (Trade) Dose Ordered Sig/Idalia Route Start Time Stop Time Status Last Admin (NS Flush) 2 ml BID IV 10/02/16 21:00 (NS Flush) 2 ml UNSCH PRN IV 10/02/16 18:15 (Tylenol) 650 mg Q4H PRN PO 10/02/16 18:15 (Motrin) 600 mg Q6H PRN PO 10/02/16 18:15 10/03/16 23:34 (Percocet 5-325 Mg) 1 tab Q4H PRN PO 10/02/16 18:15 10/03/16 23:34 (Percocet 5-325 Mg) 2 tab Q4H PRN PO 10/02/16 18:15 (Americaine 20% Top Spr) 1 spray Q4H PRN TOPICAL 10/02/16 18:15 (Tucks Pads) 1 applic QID PRN TOPICAL 10/02/16 18:15 (Alona-Colace) 2 tab Q12H PRN PO 10/02/16 18:15 10/03/16 16:42 (Ambien) 5 mg HS PRN PO 10/02/16 18:15 (Mag-Al Plus Susp Liq) 15 ml Q8H PRN PO 10/02/16 18:15 (Zofran Odt) 4 mg Q6H PRN PO 10/02/16 18:15 (Anthony Cota MD R1) Assessment/Plan Problem List: (1) care following vaginal delivery Assessment and Plan 26 year old PPD#2. 1. Care - AFVSS - Encouraged OOB, as tolerated - Motrin prn pain - Advised pelvic rest x 6 weeks - - Contraception: States she has consent signed for BTL from her physician and will schedule this in four weeks - Will f/u with [facility] in [facility] weeks - Anticipate discharge today wdw Dr. Heard (Anthony Cota MD R1) Attestation Agree with management plan. Discharge home. (Cindy Heard MD) Anthony Cota MD R1 Oct 04, 2016 07:15 Cindy Heard MD Oct 04, 2016 09:24
[2016-10-04 08:00] VITALS: BP 131/93; PULSE 68; RESP 18; TEMP 98.3
== END 2016-10-04 13:10 | disposition home or self-care (01) | DRG 775 ==
LOC: HOBED 07:49 → H2EA 08:42 → H1EA 20:25
PROVIDERS: ADMIT Obstetrics & Gynecology; ATTEND Obstetrics & Gynecology
PROC: 10E0XZZ Delivery of Products of Conception, External Approach (ICD-10-PCS; principal; 2016-10-02)
PROC: 10907ZC Drainage of Amniotic Fluid, Therapeutic from Products of Conception, Via Natural or Artificial Opening (ICD-10-PCS; 2016-10-02)
PROC: 00HU33Z Insertion of Infusion Device into Spinal Canal, Percutaneous Approach (ICD-10-PCS; 2016-10-02)
PROC: 3E0R3CZ (ICD-10-PCS; 2016-10-02)
DX: O75.89 Other specified complications of labor and delivery (principal); R03.0 Elevated blood-pressure reading, without diagnosis of hypertension; Z23 Encounter for immunization; Z87.891 Personal history of nicotine dependence; Z3A.39 39 weeks gestation of pregnancy; Z37.0 Single live birth
CPT/HCPCS: 80053; 81001; 85025; 86900; 86901; 90715; 99285; J2590; J7120